=== PATIENT | male | born 1975 | race Caucasian/White ===

== ENCOUNTER 2020-03-06 22:41 | Inpatient (IN) | payer OTHER ==
[~2020-03-06] VITALS: Ht 182.9 cm; Wt 96.0 kg
[~2020-03-06 22:41] MED LIST: CIPR500 PO; CRUTCH2 USE; DOCSEN PO; HYDACE5 PO; HYDMOR2 PO; NAPR500 PO; OXYACE5T PO; OXYACE7.5T PO; OXYC10ER PO; RXHYDMOR2 PO
[2020-03-07] LABS: BASOPHILS ABSOLUTE AUTO 0.04 K/mm3 (0.00-0.23); BASOPHILS PERCENT AUTO 0 % (0-2); EOSINOPHILS ABSOLUTE AUTO 0.21 K/mm3 (0.00-0.68); EOSINOPHILS PERCENT AUTO 2 % (0-6); Hematocrit 36.7 % (37.0-53.0); Hemoglobin 12.1 g/dL (13.5-17.5); IMMATURE GRAN ABSOLUTE AUTO 0.08 K/mm3 (0.00-0.10); IMMATURE GRAN PERCENT AUTO 1 % (0-1); LYMPHOCYTES ABSOLUTE AUTO 1.86 K/mm3 (0.84-5.20); LYMPHOCYTES PERCENT AUTO 19 % (21-46); MONOCYTES ABSOLUTE AUTO 0.83 K/mm3 (0.16-1.47); MONOCYTES PERCENT AUTO 9 % (4-13); Mean Corpuscular HGB 32.5 pg (26.0-34.0); Mean Corpuscular Volume 99 fL (80-100); NEUTROPHILS PERCENT AUTO 69 % (41-73); Platelet Count 218 K/mm3 (150-400); RDW Coefficient Variation 13.6 % (11.7-14.2); RDW Standard Deviation 49.4 fL (35.1-46.3); Red Blood Cell Count 3.72 M/mm3 (4.30-5.90); White Blood Cell Count 9.62 K/mm3 (4.00-11.30)
[2020-03-07 00:18] LABS: Albumin, Blood 3.8 g/dL (3.4-5.0); Albumin/Globulin Ratio 1.1 (0.8-1.8); Bilirubin, Total 0.2 mg/dL (0.1-1.0); Calcium, Blood 7.8 mg/dL (8.5-10.1); Creatinine, Blood 1.47 mg/dL (0.60-1.20); Globulin, Blood 3.6 g/dL (2.2-4.0); Total Protein, Blood 7.4 g/dL (6.4-8.2)
--- NOTE | 2020-03-07 04:28 | NUR ---
SHIFT SUMMARY PT IS A/O X4. D/T FOOT INJURY PT HAS BEEN USING WALKER TO AMBULATE TO BATHROOM AND HAS KEPT WEIGHT OFF R FOOT. PAIN MANAGED WITH IV PAIN MEDS PER ORDERS. ICE APPLIED, FOOT ELEVATED. DRESSING IN PLACE TO R FOOT CDI. NO SIGNS OF BLEEDING. PT HAS BEEN NPO SINCE MIDNIGHT. ASSISTED WITH ADL'S PRN. NO ACUTE CHANGES. VSS.
--- NOTE | 2020-03-07 07:38 | NUR ---
pt sleeping wakes to verbal stimuli pt stated pain is coming back starts to throb and is numb 05/02 dressing had a shadow was reenforced earlier by night rn still cdi no shadow at this time elev pt laying on his side stated after meds pain comes down to a 3-01/31 dr escobar by to see pt will take pt to or for I&D at 1200 today pt is npo
--- NOTE | 2020-03-07 10:05 | NUR ---
pt talking on the phone offered swabs for dry mouth pt declined
--- NOTE | 2020-03-07 10:21 | NUR ---
dr ritchie by to see pt
--- NOTE | 2020-03-07 11:30 | NUR ---
pt woke up from his nap oob to bathroom with fww to void back to bed pt given pain meds
--- NOTE | 2020-03-07 13:10 | NUR ---
pt transported to or via [facility]
--- NOTE | 2020-03-07 15:00 | NUR ---
pt arrived back to room 215 pt is awake and hungry no nausea dressing is c/d/i micky wrap pt can wiggle toes cool to the touch pt stated pain is much better 11/02 will call pt for update per req foot elev on pillows
--- NOTE | 2020-03-07 16:24 | NUR ---
pt sleeping earlier dr escobar by to see pt he showed him post op xray and taked to him re plan for post op plans
--- NOTE | 2020-03-07 16:47 | NUR ---
pt working with physical therapy
--- NOTE | 2020-03-07 17:44 | NUR ---
pt got back into bed
--- NOTE | 2020-03-07 19:20 | NUR ---
pt wanting to go out to smoke offered to get pt a nicotine patch or gum or both pt stated he is going ama i called purchasing supervisor to see if he could go out to smoke stated no due to covid pt state he is going ama he signed the papers and called his told him the risks called the ans service to let luz know iv removed
--- NOTE | 2020-03-07 19:46 | NUR ---
PT LEFT VIA WHEELCHAIR AT 1940. PT SIGNED AMA PAPERWORK WITH PREVIOUS NURSE. BELONGINGS WITH PT. EDUCATION PROVIDED TO PT REGARDING KEEPING FOOT CLEAN. SPOKE WITH DR ALEGRE WILL ATTEMPT TO CONTACT PT REGARDING ANTIBIOTICS.
--- NOTE | 2020-03-07 20:46 | NUR ---
SPOKE WITH REGARDING OUTPT ABX. WILL CALL IN PRESCRIPTION TO [facility].
--- NOTE | 2020-03-07 22:21 | NUR ---
CALLED IN AUGMENTIN PRESCRIPTION TO PHARMACY
== END 2020-03-07 19:40 | disposition left against medical advice (07) | DRG 502 ==
LOC: ER 22:41 → SURS 22:42
PROVIDERS: Emergency Medicine; Orthopaedic Surgery; ADMIT Surgery
PROC: 0QDN0ZZ Extraction of Right Metatarsal, Open Approach (ICD-10-PCS; principal; 2020-03-07 13:00)
DX: S92.331B Displaced fracture of third metatarsal bone, right foot, initial encounter for open fracture (principal); S92.341B Displaced fracture of fourth metatarsal bone, right foot, initial encounter for open fracture; W32.0XXA Accidental handgun discharge, initial encounter; Y92.9 Unspecified place or not applicable; F17.210 Nicotine dependence, cigarettes, uncomplicated; Z90.5 Acquired absence of kidney; Z85.528 Personal history of other malignant neoplasm of kidney
CPT/HCPCS: 11010; 73630; 73700; 80053; 85025; 93005; 93010; 96361-59; 96366; 96367; 96374-59; 96375; 96375-59; 96376; 97116; 97161; 99152; 99285-25; G0378; J0171; J0690; J0696; J1100; J1170; J1885; J1956; J2250; J2405; J2704; J3010; J3480; J7030; J7120

== ENCOUNTER 2020-03-09 11:52 | Emergency (ER) | payer OTHER ==
[2020-03-09] MEDS ORDERED: Percocet 5-3251 EACH PO (12:17)
== END 2020-03-09 12:42 | disposition home or self-care (01) ==
DX: G89.18 Other acute postprocedural pain (principal); M79.671 Pain in right foot; F17.210 Nicotine dependence, cigarettes, uncomplicated; Z98.890 Other specified postprocedural states

== ENCOUNTER 2020-11-09 08:33 | Emergency (ER) | payer OTHER ==
[~2020-11-09] VITALS: Ht 182.9 cm; Wt 99.8 kg
[~2020-11-09 08:33] MED LIST changes: +Percocet 5-3251 EACH PO
[2020-11-09 09:46] LABS: Source, Urine Clean Catch
[2020-11-09 09:55] LABS: Bilirubin, Urine Neg (Neg); Blood, Urine Neg (Neg); Glucose Qualitative, Urine Neg (Neg); Ketones, Urine Neg (Neg); Leukocyte Esterase, Urine Neg (Neg); Nitrite, Urine Neg (Neg); Protein, Urine Neg (Neg); Specific Gravity, Urine 1.015 (1.003-1.022); Urobilinogen, Urine NORM (Normal)
[2020-11-09 09:56] LABS: Appearance, Urine Clear (Clear); Color, Urine Yellow (P-Yellow)
[2020-11-09] MEDS ORDERED: CYCL10 PO (10:36)
[2020-11-09] MEDS ORDERED: LIDO700A20 TOP (10:36)
== END 2020-11-09 10:41 | disposition home or self-care (01) ==
LOC: ER 08:33
PROVIDERS: Physician Assistant
DX: M54.5 Low back pain (principal); M25.562 Pain in left knee; M25.561 Pain in right knee; F17.210 Nicotine dependence, cigarettes, uncomplicated
CPT/HCPCS: 72100; 81003; 96372; 99283-25; A9270; J1885

== ENCOUNTER 2022-05-09 18:34 | Emergency (ER) | payer OTHER ==
[~2022-05-09] VITALS: Ht 182.9 cm; Wt 104.3 kg
[~2022-05-09 18:34] MED LIST changes: +CYCL10 PO; +LIDO700A20 TOP
== END 2022-05-09 22:00 | disposition home or self-care (01) ==
LOC: ER 18:34
DX: K42.9 Umbilical hernia without obstruction or gangrene (principal); F17.210 Nicotine dependence, cigarettes, uncomplicated; Z85.528 Personal history of other malignant neoplasm of kidney
CPT/HCPCS: 99283